=== PATIENT | female | born 1950 | race African-American/Black ===

== ENCOUNTER 2019-09-25 08:33 | Inpatient (IN) | payer MEDICARE, OTHER ==
--- NOTE | 2019-09-25 09:43 | RAD ---
PORTABLE CHEST 1 VIEW: Date: 09/25/2019 Time: 0855 hours HISTORY: Chest pain. FINDINGS: The heart size is borderline. The aorta is tortuous. The lungs are well expanded without focal areas of consolidation, pneumothoraces, or pleural effusions. IMPRESSION: No acute process. POS: [facility]
[2019-09-25] MEDS ORDERED: Dextrose 50% Abboject 50 ML SYRINGE SLOW IVP PRN (11:56)
[2019-09-25] MEDS ORDERED: Sodium Chloride 0.65% Nasal 44 ML BOT EA NARE PRN (11:56)
[2019-09-25] MEDS ORDERED: Cepastat Lozenges 1 LOZ PO PRN (11:56)
[2019-09-25] MEDS ORDERED: Zolpidem Tartrate 5 MG TAB PO PRN (11:56)
[2019-09-25] MEDS ORDERED: Loratadine 10 MG TAB PO PRN (11:56)
[2019-09-25] MEDS ORDERED: HYDROcodone/Acetaminophen 5/325 mg Tablet PO PRN (11:56)
[2019-09-25] MEDS ORDERED: Ondansetron PF 4 MG/2 ML Vial IVP PRN (11:56)
[2019-09-25] MEDS ORDERED: Ondansetron ODT 4 MG TAB PO PRN (11:56)
[2019-09-25] MEDS ORDERED: Artificial Tears 18 DROP/0.9 ML EA EYE PRN (11:56)
[2019-09-25] MEDS ORDERED: Senokot S 8.6-50 MG TAB PO PRN (11:56)
[2019-09-25] MEDS ORDERED: Bisacodyl 10 MG SUPP PR PRN (11:56)
[2019-09-25] MEDS ORDERED: Calcium Carbonate 500 MG ChewTAB PO PRN (11:56)
[2019-09-25] MEDS ORDERED: Acetaminophen 325 MG TAB PO PRN (11:56)
[2019-09-25] MEDS ORDERED: Loperamide HCl 2 MG CAP PO PRN (11:56)
[2019-09-25] MEDS ORDERED: Diabetic Tussin 200 MG/10 ML UDCUP PO PRN (11:56)
[2019-09-25] MEDS ORDERED: Dextrose 5% in Water 1,000 ML IV PRN (11:56)
[2019-09-25] MEDS ORDERED: HumaLOG 300 UNITS/3 ML VIAL SC PRN (11:56)
[2019-09-25 12:12] LABS: #Eosinphils 0.1 thou/uL (0.0-0.7); #Lymphocytes 0.9 thou/uL (1.20-3.40); #Monocytes 0.5 thou/uL (0.11-0.59); #Neutrophils 2.8 thou/uL (1.40-6.50); %Basophils 0.5 % (0.0-1.0); %Eosinophils 2.6 % (0.0-10.0); %Lymphocytes 20.2 % (21.0-51.0); %Monocytes 11.7 % (0.0-10.0); Hemoglobin 10.6 g/dL (12.0-16.0); Mean Corpuscular HGB CONC 34.2 g/dL (32.0-36.0); Mean Corpuscular Hemoglobin 31.5 pg (27.0-31.0); Mean Corpuscular Volume 92.3 fL (78.0-98.0); RBC Distribution Width 16.9 % (11.5-14.5); Red Blood Cell (RBC) Count 3.38 mill/uL (4.20-5.40); White Blood Cell (WBC) Count 4.3 thou/uL (4.8-10.8)
--- NOTE | 2019-09-25 12:23 | HP ---
PRIMARY CARE PHYSICIAN: Dr. Jose Espinal at [place]. REASON FOR ADMISSION: Admission from Nephrology Clinic for dialysis. HISTORY OF PRESENT ILLNESS: A 69-year-old female, who presented to the emergency room from Nephrology Clinic for evaluation. The patient had routine laboratory testing done yesterday upon followup visit with Nephrology and the patient's renal function deteriorated to below 10% GFR and that is why the patient was instructed to go to hospital for admission. Few months ago, the patient's GFR was above 10% and gradually, her GFR has reduced below 10%. The patient does not have any classic uremia symptoms. The patient is overall not feeling good because of worsening renal function and that is why the patient agreed to start on hemodialysis. The patient denies any NSAID abuse. The patient has underlying history of diabetes, but lately, her diabetes was diet controlled. The patient also has underlying renal insufficiency. The patient also has hypertension. The patient had a kidney biopsy done in 2016, at that time, pathology report showed global glomerulosclerosis. REVIEW OF SYSTEMS: CONSTITUTIONAL: Negative for weight loss or gain, ability to conduct usual activities. SKIN: Negative for rash, itching. EYES: Negative for double vision, pain. ENT/MOUTH: Negative for nose bleeding, neck stiffness, pain, tenderness. CARDIOVASCULAR: Negative for palpitations, dyspnea on exertion, orthopnea. RESPIRATORY: Negative for shortness of breath, wheezing, cough, hemoptysis, fever or night sweats. GASTROINTESTINAL: Negative for poor appetite, abdominal pain, heartburn, nausea , vomiting, constipation, or diarrhea. GENITOURINARY: Negative for urgency, frequency, dysuria, nocturia. MUSCULOSKELETAL: Negative for pain, swelling. NEUROLOGIC/PSYCHIATRIC: Negative for anxiety, depression. ALLERGY/IMMUNOLOGIC: Negative for skin rash, bleeding tendency. All review of systems reviewed with the patient and negative except as mentioned in HPI. PAST MEDICAL HISTORY: Hypertension, diabetes type 2, chronic kidney disease, and glomerulosclerosis. PAST SURGICAL HISTORY: Bilateral eye surgery and kidney biopsy. PAST PSYCHIATRIC HISTORY: Reviewed and negative. SOCIAL HISTORY: The patient lives at home. No history of tobacco, alcohol, or illicit drug abuse. FAMILY HISTORY: No family history of ESRD, heart disease, stroke, or cancer. ALLERGIES: METFORMIN. CURRENT HOME MEDICATIONS: The patient did not bring her home medication and she is not able to recall name of medication, so unable to review, but the patient is on hypertension medication. EMERGENCY ROOM COURSE: Reviewed. SOCIAL HISTORY: The patient is . No history of tobacco, alcohol, or illicit drug abuse. PHYSICAL EXAMINATION: VITAL SIGNS: Currently, blood pressure 170/74, pulse 51, respiratory rate 15, temperature 98.6, saturations 100% on room air. Weight 63.5 kg. GENERAL: The patient is currently alert and awake. No acute distress. HEENT: Head; normocephalic, atraumatic. NECK: Supple. No JVD. No meningeal signs of irritation. LUNGS: Clear to auscultation without any rhonchi or rales. CARDIAC: S1 and S2, regular. No murmur. No gallop. No rub. ABDOMEN: Soft, bowel sounds present, nontender, nondistended. No organomegaly. No mass. EXTREMITIES: No edema. Good distal pulsation. NEUROLOGIC: Nonfocal examination. SIGNIFICANT LABORATORY DATA: We have ordered BMP, CBC, CK, CMP, troponin, and chest x-ray result is pending by the time of dictation. We will review all test results. ASSESSMENT: 1. Acute on chronic kidney failure and now end-stage renal disease, requiring hemodialysis. 2. Diabetes type 2. 3. Hypertension. 4. Global glomerulosclerosis. 5. Anemia of renal disease. 6. Secondary hyperparathyroidism of renal origin. 7. Dyslipidemia. 8. Hypercalcemia PLAN: 1. The patient's home medications will be reconciled and will restart those medications. Nephrology will be consulted. The patient will need a General Surgery consultation for hemodialysis access and the patient will have regular dialysis every day. Social Work will be consulted for outpatient hemodialysis arrangements. We will also check PTH, phosphorus, and anemia panel. We will also obtain chest x-ray. 2. Deep venous thrombosis prophylaxis. Heparin 5000 units subcu twice daily. 3. Gastrointestinal prophylaxis, Protonix 40 mg p.o. daily. 4. Diabetes. Hyperglycemia protocol order will be initiated. DISPOSITION PLAN: Based on clinical course. We are expecting the patient's stay in hospital more than 2 midnights. Plan of care discussed with the patient in detail. Job ID: [id number] MTDD
[2019-09-25 12:31] LABS: ALT (SGPT) 13 U/L (8-55); AST (SGOT) 18 U/L (5-34); Albumin 3.9 g/dL (3.4-4.8); Alkaline Phosphatase 77 U/L (40-110); Anion Gap 14 mmol/L (10-20); BUN (Urea Nitrogen) 96 mg/dL (9.8-20.1); Bilirubin, Total 0.3 mg/dL (0.2-1.2); CK (CPK) 336 U/L (29-168); Calc. Creatinine Clearance 0 mL/min (70-130); Carbon Dioxide 23 mmol/L (23-31); Chloride 106 mmol/L (98-107); Estimated GFR-MDRD 9; Globulin 2.9 g/dL (2.4-3.5); Glucose 116 mg/dL (80-115); Potassium 3.8 mmol/L (3.5-5.1); Protein, Total 6.8 g/dL (6.0-8.3); Sodium 139 mmol/L (136-145)
[2019-09-25 12:33] LABS: Calcium 12.4 mg/dL (7.8-10.44)
[2019-09-25 12:35] LABS: Troponin I 0.038 ng/mL (< 0.028)
[2019-09-25 12:35] LABS: Iron 25 ug/dL (50-170); Iron Binding Capacity, Total 196 mcg/dL (265-497); Phosphorus 4.7 mg/dL (2.3-4.7)
[2019-09-25 12:37] LABS: MDiff Complete? YES; Mean Platelet Volume 9.2 fL (7.4-10.4); Platelet Count 115 thou/uL (130-400); Platelet Morphology Comment Appears Decreased; Polychromasia SLIGHT = 2-3 cells (100X) (0-2/hpf)
[2019-09-25] MEDS ORDERED: Aspirin Chewable 81 MG TAB ONE (13:07)
[2019-09-25 14:59] VITALS: BMI 24.3
[2019-09-25] MEDS ORDERED: CEFAZOLIN 2 GM in Premix Bag 1 BAG IVPB SCH (15:45)
--- NOTE | 2019-09-25 16:08 | CON ---
DATE OF CONSULTATION: REASON FOR CONSULTATION: End-stage kidney disease, on maintenance hemodialysis. HISTORY OF PRESENTING ILLNESS: This is a very pleasant 69-year-old female [facility], seen yesterday for worsening renal failure, and severe hypercalcemia. The patient denies any nausea, vomiting, or chest pain. Her renal function is declining. She has diabetes mellitus. The patient has poor appetite. PAST MEDICAL HISTORY: Hypertension, diabetes, chronic kidney disease, hypertensive nephrosclerosis, eye surgery, kidney biopsy. SOCIAL HISTORY: No alcohol or drug use. FAMILY HISTORY: Negative for ESRD. ALLERGIES: REVIEWED. MEDICATIONS: Home medications list reviewed. Hospital medications list reviewed. REVIEW OF SYSTEMS: 15-point review of systems was performed, was negative except for positives noted above. HEENT: Eyes intact, no diplopia. Ears: No hearing loss or earache. Nose: No discharge or bleeding. Chest: No cough or phlegm. Abdomen: No nausea or vomiting. Genitourinary: No hematuria. No Yi catheter. Musculoskeletal: No low back pain. No joint swelling or pain. Neurological: No syncope. No seizures. Skin: No complaints of rash or itching. Psychiatric: No depression. Constitutional: No weight loss or loss of appetite. PHYSICAL EXAMINATION: General: The patient is awake and alert. Vital Signs: Afebrile, pulse 59, breathing at 16, blood pressure 186/87. HEENT: Head normocephalic and atraumatic. Eyes intact, no ulcers. Nose intact, no ulcers. Ears intact, no ulcers. Neck: Supple. No JVD. Chest: Symmetrical and clear. Cardiovascular: Shows S1 and S2, no rub, no murmur. Gastrointestinal: Abdomen is soft, bowel sounds positive. Extremities: Show no edema or ulcers. Skin: Shows no rash or petechiae. Musculoskeletal: Shows no joint swelling or stiffness. Genitourinary: Shows no Yi or CVA tenderness. Neurologic: Motor intact. Cranial nerves intact. LABORATORY DATA: Reviewed. ASSESSMENT AND PLAN: 1. Stage 6 chronic kidney disease. Plan dialysis. 2. Hypertension, stable. 3. Anemia, stable. General Surgery will be consulted. 4. Hypercalcemia. We will use a low calcium diet. Job ID: [id number]
[2019-09-25 16:10] LABS: Troponin I 0.025 ng/mL (< 0.028)
[2019-09-25] MEDS: hydrALAZINE 20 MG/ML VIAL SLOW IVP PRN ×2 (16:19→20:50)
[2019-09-25 16:39] LABS: Bacteria/HPF None Seen HPF (None Seen); Bilirubin Negative (Negative); Blood, Urine Trace (Negative); Clarity Clear (Clear); Glucose, Urine (Dipstick) Normal (Negative); Leukocyte Negative Leu/uL (Negative); Nitrite Negative (Negative); Protein, Urine (Dipstick) 100 mg/dL (Neg-Trace); RBC/HPF 0-3 HPF (0-3); Squamous Epithelial None Seen HPF (0-3); Urobilinogen Normal mg/dL (Less than 2); WBC/HPF 0-3 HPF (0-3)
[2019-09-25] MEDS ORDERED: NIFEdipine XL 60 MG TAB PO SCH (18:15)
[2019-09-25] MEDS: Carvedilol 25 MG TAB PO SCH (20:51)
[2019-09-25] MEDS: Heparin 5,000 UNITS/ML VIAL SC SCH (21:02)
--- NOTE | 2019-09-26 01:47 | CON ---
DATE OF CONSULTATION: HISTORY OF PRESENT ILLNESS: Katelynn Lara is a 69-year-old female, admitted to hospice for end-stage renal disease. She has progressive renal failure and now needs dialysis access. She is seen by Dr. Stafford, admitted by the hospitalist. She lives in [place]. ALLERGIES: METFORMIN. SOCIAL HISTORY: Tobacco, none. Alcohol, none. MEDICATIONS: 1. Simvastatin. 2. Nifedipine. 3. Cholecalciferol. 4. Multivitamins. 5. Furosemide. 6. Sodium bicarbonate. 7. Hydralazine. 8. Losartan. 9. Multivitamins. 10. . 11. Calcium carbonate. 12. Coreg. 13. Aspirin. 14. Timolol eye drops. PAST SURGICAL HISTORY: Eye surgery and kidney biopsy. PAST MEDICAL HISTORY: Hypertension, diabetes mellitus type 2, chronic kidney disease, glomerulosclerosis, and endoscopies upper and lower in the past. REVIEW OF SYSTEMS: Ten-point noncontributory, otherwise. Cardiopulmonary, no history of cardiac events or symptomatology. No symptoms of coronary ischemia. PHYSICAL EXAMINATION: VITAL SIGNS: Height 5 feet 5 inches, 146 pounds, and 24 BMI. Temperature 97.7, heart rate 59, blood pressure 172/77, and respiratory rate 18. HEAD, EARS, EYES, NOSE, AND THROAT: Unremarkable. LUNGS: Clear to auscultation. CARDIAC: murmur or gallop. ABDOMEN: Soft and nontender. No masses. EXTREMITIES: Palpable radial pulses. No visible demonstrable vein out of the right hand. ASSESSMENT AND PLAN: 1. Right-handed female in need of dialysis access. We will plan placing a hemodialysis catheter in central line in the OR under IV sedation and local tomorrow. We will plan placement of primary fistula or prosthetic graft next week under regional anesthesia and sedation. She is not interested in peritoneal dialysis. 2. Hypertension. Job ID: [id number]
--- NOTE | 2019-09-26 07:44 | ULT ---
ULTRASOUND VESSEL MAPPING DIALYSIS ACCESS: HISTORY: End stage renal disease. COMPARISON: None. FINDINGS: Real-time, garcia scale, color Doppler, and spectral analysis right upper extremity and left upper extr emity arteriovenous system was performed. The right and left and internal jugular veins as well as subclavian veins are patent. RIGHT SIDE: CEPHALIC VEIN Proximal Arm: 0.14 cm Mid Arm: 0.13 cm Distal Arm: 0.14 cm Antecubital Fossa: 0.17 cm Proximal Forearm: 0.13 cm Mid Forearm: 0.12 cm Distal Forearm: 0.12 cm BASILIC VEIN Proximal Arm: 0.32 cm Mid Arm: 0.25 cm Distal Arm: 0.19 cm Antecubital Fossa: 0.21 cm Proximal Forearm: 0.12 cm Mid Forearm: 0.15 cm Distal Forearm: 0.11 cm BRACHIAL ARTERY: 0.48 cm RADIAL ARTERY: 0.23 cm ULNAR ARTERY: 0.18 cm LEFT SIDE: CEPHALIC VEIN Proximal Arm: 0.16 cm Mid Arm: 0.15 cm Distal Arm: 0.14 cm Antecubital Fossa: 0.15 cm Proximal Forearm: 0.12 cm Mid Forearm: 0.14 cm Distal Forearm: 0.12 cm BASILIC VEIN Proximal Arm: 0.22 cm Mid Arm: 0.22 cm Distal Arm: 0.19 cm Antecubital Fossa: 0.20 cm Proximal Forearm: 0.14 cm Mid Forearm: 0.11 cm Distal Forearm: 0.12 cm BRACHIAL ARTERY: 0.56 cm RADIAL ARTERY: 0.24 cm ULNAR ARTERY: 0.19 cm IMPRESSION: 1. Vascular size as above. 2. Patent internal jugular veins and subclavian veins. POS: HOME
[2019-09-26] MEDS: Heparin 5,000 UNITS/ML VIAL SC SCH ×2 (08:50→21:01)
[2019-09-26] MEDS: Carvedilol 25 MG TAB PO SCH ×2 (08:59→21:01)
[2019-09-26] MEDS: NIFEdipine XL 60 MG TAB PO SCH (08:59)
[2019-09-26] MEDS: Aspirin Chewable 81 MG TAB PO SCH (09:00)
--- NOTE | 2019-09-26 09:00 | PRG ---
DATE OF SERVICE: 09/26/2019 SUBJECTIVE: A 69-year-old female, being seen for end-stage renal disease. The patient denied nausea, vomiting, or chest pain. OBJECTIVE: General: The patient is awake and alert. Vital Signs: Afebrile, pulse 75, breathing at 16, blood pressure 149/60. HEENT: Head normocephalic and atraumatic. Eyes intact, no ulcers. Nose intact, no ulcers. Ears intact, no ulcers. Neck: Supple. No JVD. Chest: Symmetrical and clear. Cardiovascular: Shows S1 and S2, no rub, no murmur. Gastrointestinal: Abdomen is soft, bowel sounds positive. Extremities: Show no edema or ulcers. Skin: Shows no rash or petechiae. Musculoskeletal: Shows no joint swelling or stiffness. Genitourinary: Shows no Yi or CVA tenderness. Neurologic: Motor intact. Cranial nerves intact. LABORATORY DATA: Reviewed. ASSESSMENT AND PLAN: 1. Stage 6 chronic kidney disease. Plan dialysis. 2. Hypertension, stable. 3. Anemia, stable. 4. Medication based on GFR appropriate. The patient is awaiting access. Job ID: [id number]
--- NOTE | 2019-09-26 10:31 | PDOC.HOSPP ---
- Subjective Encounter Date: 09/26/19 Encounter Time: 10:00 Subjective: Patient seen and examined. No new complaints. No overnight events - Objective Vital Signs & Weight: Vital Signs (12 hours) Temp Pulse Resp BP Pulse Ox 09/26/19 08:59 80 09/26/19 08:00 98.6 F 80 18 145/70 H 98 09/26/19 04:10 98.9 F 81 16 149/66 H 98 09/26/19 00:10 98.2 F 71 16 150/71 H 99 Weight Weight 146 lb 2.664 oz I&O: 09/25/19 09/26/19 09/27/19 06:59 06:59 06:59 Intake Total 300 Balance 300 Result Diagrams: 09/25/19 11:55 09/25/19 11:55 Additional Labs: Accuchecks 09/26/19 09/25/19 09/25/19 06:03 20:20 15:16 POC Glucose 124 H 164 H 121 H Hospitalist ROS - Review of Systems Constitutional: denies: fever, chills, sweats, weakness, malaise, other ENT: denies: ear pain, ear discharge, nose pain, nose discharge, nose congestion , mouth pain, mouth swelling, throat pain, throat swelling, other Respiratory: denies: cough, dry, shortness of breath, hemoptysis, SOB with excertion, pleuritic pain, sputum, wheezing, other Cardiovascular: denies: chest pain, palpitations, orthopnea, paroxysmal noc. dyspnea, edema, light headedness, other Gastrointestinal: denies: nausea, vomiting, abdominal pain, diarrhea, constipation, melena, hematochezia, other Genitourinary: denies: dysuria, frequency, incontinence, hematuria, retention, other Musculoskeletal: denies: neck pain, shoulder pain, arm pain, back pain, hand pain, leg pain, foot pain, other Skin: denies: rash, lesions, sandra, bruising, other - Medication Medications: Active Medications Generic Name Dose Route Start Last Admin Trade Name Freq PRN Reason Stop Dose Admin Aspirin 81 mg 09/26/19 09:00 09/26/19 09:00 Aspirin Chewable PO Not Given DAILY CESAR Carvedilol 25 mg 09/25/19 21:00 09/26/19 08:59 Coreg PO 25 mg BID CESAR Administration Heparin Sodium (Porcine) 5,000 units 09/25/19 21:00 09/26/19 08:50 Heparin SC Not Given BID CESAR Hydralazine HCl 10 mg 09/25/19 11:56 09/25/19 20:50 Apresoline SLOW IVP 10 mg Q3H PRN Administration SBP GREATER THAN 160 Nifedipine 60 mg 09/26/19 09:00 09/26/19 08:59 Procardia Xl PO 60 mg DAILY CESAR Administration Pantoprazole Sodium 40 mg 09/26/19 09:00 09/26/19 08:59 Protonix PO 40 mg DAILY CESAR Administration Pneumococcal 13-Valent Conj Vacc 0.5 ml 09/26/19 15:45 09/25/19 18:35 Prevnar IM 09/26/19 15:46 Not Given .ONCE ONE - Exam General Appearance: NAD, awake alert Eye: PERRL, anicteric sclera ENT: normocephalic atraumatic, no oropharyngeal lesions Neck: supple, symmetric, no JVD, no thyromegaly Heart: RRR, no murmur, no gallops, no rubs Respiratory: CTAB, no wheezes, no rales, no ronchi Gastrointestinal: soft, non-tender, non-distended, normal bowel sounds Extremities: no cyanosis, no clubbing, no edema Skin: normal turgor, no lesions Neurological: no focal deficits Musculoskeletal: normal tone, normal strength Psychiatric: normal affect, normal behavior Hosp A/P (1) ESRD needing dialysis Code(s): N18.6 - END STAGE RENAL DISEASE; Z99.2 - DEPENDENCE ON RENAL DIALYSIS Status: Acute (2) Hypercalcemia Code(s): E83.52 - HYPERCALCEMIA Status: Acute (3) Hypertension Code(s): I10 - ESSENTIAL (PRIMARY) HYPERTENSION Status: Chronic Qualifiers: Hypertension type: essential hypertension Qualified Code(s): I10 - Essential (primary) hypertension (4) Anemia of renal disease Code(s): N18.9 - CHRONIC KIDNEY DISEASE, UNSPECIFIED; D63.1 - ANEMIA IN CHRONIC KIDNEY DISEASE Status: Chronic (5) Diabetes type 2, controlled Code(s): E11.9 - TYPE 2 DIABETES MELLITUS WITHOUT COMPLICATIONS Status: Chronic (6) Dyslipidemia Code(s): E78.5 - HYPERLIPIDEMIA, UNSPECIFIED Status: Chronic (7) Glaucoma Code(s): H40.9 - UNSPECIFIED GLAUCOMA Status: Chronic - Plan old records reviewed/req, social contact worker, DVT proph w/heparin 09/26/19 hypercalcemia may be due to her medication but given pancyctopenia, will rule out multiple myeloma, will send SPAP tomorrow repeat labs tomorrow medication reviewed symptomatic treatment today tunneled HD catheter placement HD as per nephrology home medication reconciled.
[2019-09-26] MEDS: Brimonidine Tartrate 0.2% Ophth Soln 5 ml Bottle EA EYE SCH ×3 (10:39→21:09)
[2019-09-26] MEDS: Dorzolamide HCl 2% Ophth Soln 10 ml Bottle EA EYE SCH ×3 (10:40→21:06)
[2019-09-26] MEDS: hydrALAZINE 25 MG TAB PO SCH ×3 (10:46→21:01)
[2019-09-26] MEDS: Sodium Bicarbonate Tab 325 MG TAB PO SCH ×2 (10:47→21:01)
[2019-09-26] MEDS: Vit A,C & E/Lutein/Minerals Tablet PO SCH ×2 (10:49→21:01)
[2019-09-26] MEDS: Timolol 0.5% Ophth Soln 5 ml Bottle EA EYE SCH ×2 (10:49→21:09)
[2019-09-26] MEDS: Folic Acid/Vit B Comp W-C PO SCH (10:56)
[2019-09-26 11:17] LABS: SARS-CoV-2 MS2 Positive; SARS-CoV-2 N Gene Negative; SARS-CoV-2 S Gene Negative; SARS-CoV-2 orf1ab Negative
[2019-09-26] MEDS ORDERED: Lidocaine 1% PF 5 ML VIAL ONE (11:51)
[2019-09-26] MEDS ORDERED: PROPOFOL 200 MG/20 ML VIAL ONE (11:51)
[2019-09-26] MEDS: Losartan 25 MG TAB PO SCH ×2 (12:58→21:01)
[2019-09-26 14:26] LABS: HBSAB Concentration 2.33 mIU/mL; HBSAg Index 0.17 S/CO (0-0.99); Hep B Core Total Ab Non-Reactive (NonReactive); Hep B Core Total Index 0.07 S/CO (0-0.79); Hep B Surf AB Non-Reactive (NonReactive); Hep B Surf Ag Non-Reactive S/CO (NonReactive); Hep C IgG Ab Non-Reactive (NonReactive); Hep C Index 0.05 S/CO (0-0.79)
[2019-09-26] MEDS ORDERED: Prevnar 13-Val Conj/PF 0.5 ML SYRINGE IM ONE (15:45)
[2019-09-26] MEDS ORDERED: Lidocaine 1% w/Epinephrine 1:100K 20 ML VIAL ONE (16:44)
[2019-09-26] MEDS ORDERED: Bupivacaine PF 0.5% 30 ML VIAL ONE (16:44)
[2019-09-26] MEDS ORDERED: Heparin 10,000 UNITS/1 ML VIAL ONE (16:44)
[2019-09-26] MEDS ORDERED: Sodium Chloride 0.9% 30 ML ONE (16:44)
[2019-09-26] MEDS ORDERED: Midazolam HCl 2 mg/2 ml Vial ONE (16:52)
[2019-09-26] MEDS ORDERED: Fentanyl 100 MCG/2 ML VIAL ONE (16:52)
[2019-09-26] MEDS ORDERED: PROPOFOL 20 ML ONE (17:00)
--- NOTE | 2019-09-26 19:12 | RAD ---
FRONTAL RADIOGRAPH CHEST: 09/26/19 COMPARISON: 09/25/19. HISTORY: Evaluate chest following central line placement. FINDINGS: There is a new right sided dialysis catheter with distal tip overlying the proximal right atrium. The re is a new left sided vascular catheter with distal tip also overlying the proximal right atrium. No pneumothorax, pleural fluid, lobar consolidation, or alveolar edema. IMPRESSION: Vascular catheters as above. No pneumothorax seen. POS: [facility]
[2019-09-26] MEDS: Simvastatin 5 MG TAB PO SCH (21:00)
--- NOTE | 2019-09-26 22:46 | ULT ---
THYROID ULTRASOUND: Date: 09/26/2019 HISTORY: Thyromegaly. TECHNIQUE: Multiplanar Gutierrez scale sonographic imaging of the thyroid gland obtained. FINDINGS: The right lobe of the thyroid gland is enlarged, measuring 6.1 x 3.5 x 4.9 cm. The isthmus is enlarge d, measuring 1.3 cm in AP dimension. The left lobe is enlarged, measuring 5.1 x 3.0 cm x 3.5 cm. There are innumerable complex cystic nodules seen throughout both the right and left lobe of the thyr oid gland. No dominant solid thyroid nodule is noted on either side. There is a complex cystic nodule within the posterior aspect of the right lobe measuring approximatel y 1.9 x 1.2 cm. Within the superior aspect of the right lobe, there is a 2.8 x 1.7 x 1.6 cm spongifor m nodule noted. The largest nodule on the left is a 1.0 cm cystic nodule with mild complexity. IMPRESSION: Enlarged thyroid gland with numerous cystic nodules noted bilaterally. Lesions include a TI-RADS Carmen gory 3 nodule within the right lobe which measures 1.9 cm. Given size, follow-up ultrasound advised i n 1 year. POS: [facility]
--- NOTE | 2019-09-27 00:41 | OP ---
DATE OF PROCEDURE: 09/26/2019 PREOPERATIVE DIAGNOSES: 1. End-stage renal disease. 2. Poor IV access. 3. Noted during this procedure, markedly enlarged thyroid, bilobar. POSTOPERATIVE DIAGNOSES: 1. End-stage renal disease. 2. Poor IV access. 3. Noted during this procedure, markedly enlarged thyroid, bilobar. PROCEDURE PERFORMED: Right internal jugular cuffed-tunneled hemodialysis catheter, left internal jugular central line. Fluoroscopy used. Ultrasound used. ANESTHESIA: Intravenous sedation, local 0.5% Marcaine with 30 mL mixed with 1% Xylocaine with epinephrine 30 mL. DESCRIPTION OF PROCEDURE: The patient was taken to the operating room, where under intravenous sedation, neck and chest prepared with ChloraPrep and draped in routine fashion. Noted was bilobar markedly enlarged thyroid. Local anesthetic was infiltrated in the skin and subcutaneous tissue about the operative sites. Right and left internal jugular veins using ultrasound guidance cannulated with trocar catheter. J-wire was threaded. Trocar catheter was removed. Skin site was enlarged sharply on both sides, and Seldinger technique used to place a triple-lumen catheter in the left IJ, secured with 3-0 nylon suture and sterile dressing. Each port aspirated of blood and flushed with the saline solution. On the right side, a stab incision was made over the right chest and using a tunneling device, pre-curved [employer] cuffed-tunneled hemodialysis catheter tunneled between the 2 incisions, placed a the skin exit site and the catheter secured with 2 interrupted sutures of 3-0 nylon. Sterile dressing applied. A small and medium size dilators placed over the J-wire into the internal jugular vein, removed. Dilator and Peel-Away sheath the J-wire into the superior vena cava. Dilator and J-wire were removed. Catheter placed with Peel-Away sheath. Peel-Away sheath removed. Platysma was approximated with 4-0 Monocryl, skin with subdermal 4-0 Monocryl, and [place] glue applied. All ports of the catheter were aspirated of blood and flushed with saline solution. Hemodialysis catheter flushed with 1000 units of heparin per mL indicating volume on the port. The patient tolerated the procedure well. Job ID: [id number]
[2019-09-27 05:53] LABS: #Eosinphils 0.1 thou/uL (0.0-0.7); #Lymphocytes 0.7 thou/uL (1.20-3.40); #Monocytes 0.5 thou/uL (0.11-0.59); #Neutrophils 4.7 thou/uL (1.40-6.50); %Basophils 0.3 % (0.0-1.0); %Eosinophils 2.1 % (0.0-10.0); %Lymphocytes 11.2 % (21.0-51.0); %Monocytes 8.3 % (0.0-10.0); %Neutrophils 78.1 % (42.0-75.0); Hemoglobin 9.3 g/dL (12.0-16.0); Mean Corpuscular Hemoglobin 30.9 pg (27.0-31.0); Mean Corpuscular Volume 93.6 fL (78.0-98.0); Platelet Count 115 thou/uL (130-400); RBC Distribution Width 16.5 % (11.5-14.5)
[2019-09-27 06:17] LABS: Albumin 3.5 g/dL (3.4-4.8); Anion Gap 15 mmol/L (10-20); BUN (Urea Nitrogen) 87 mg/dL (9.8-20.1); BUN/Creatinine Ratio 15.85; Calc. Creatinine Clearance 10 mL/min (70-130); Calcium 11.4 mg/dL (7.8-10.44); Carbon Dioxide 23 mmol/L (23-31); Chloride 109 mmol/L (98-107); Estimated GFR-MDRD 9; Glucose 103 mg/dL (80-115); Phosphorus 4.2 mg/dL (2.3-4.7); Potassium 3.6 mmol/L (3.5-5.1); Sodium 143 mmol/L (136-145)
[2019-09-27] MEDS: hydrALAZINE 25 MG TAB PO SCH ×3 (08:42→20:22)
[2019-09-27] MEDS: Sodium Bicarbonate Tab 325 MG TAB PO SCH ×2 (08:42→20:23)
[2019-09-27] MEDS: Aspirin Chewable 81 MG TAB PO SCH (08:42)
[2019-09-27] MEDS: Losartan 25 MG TAB PO SCH ×2 (08:43→20:23)
[2019-09-27] MEDS: Carvedilol 25 MG TAB PO SCH ×2 (08:43→20:23)
[2019-09-27] MEDS: NIFEdipine XL 60 MG TAB PO SCH (08:44)
[2019-09-27] MEDS: Heparin 5,000 UNITS/ML VIAL SC SCH ×2 (08:45→20:23)
[2019-09-27] MEDS: Dorzolamide HCl 2% Ophth Soln 10 ml Bottle EA EYE SCH ×3 (08:55→20:21)
[2019-09-27] MEDS: Brimonidine Tartrate 0.2% Ophth Soln 5 ml Bottle EA EYE SCH ×3 (08:55→20:22)
[2019-09-27] MEDS: Timolol 0.5% Ophth Soln 5 ml Bottle EA EYE SCH ×2 (08:55→20:21)
[2019-09-27] MEDS: Vit A,C & E/Lutein/Minerals Tablet PO SCH ×2 (08:56→20:22)
[2019-09-27] MEDS: Folic Acid/Vit B Comp W-C PO SCH (08:57)
--- NOTE | 2019-09-27 09:41 | PDOC.HOSPP ---
- Subjective Encounter Date: 09/27/19 Encounter Time: 09:35 Subjective: f/u for ESRD initiating HD today after placement of tunneled HD catheter. No new issues noted. - Objective Vital Signs & Weight: Vital Signs (12 hours) Temp Pulse Resp BP BP Pulse Ox 09/27/19 08:55 77 09/27/19 08:44 77 09/27/19 08:42 77 159/85 H 09/27/19 04:00 98.1 F 77 16 136/76 98 09/27/19 00:00 98 F 72 16 143/74 H 99 Weight Admit Weight 146 lb 2.664 oz Weight 146 lb 2.664 oz I&O: 09/26/19 09/27/19 09/28/19 06:59 06:59 06:59 Intake Total 300 960 Balance 300 960 Result Diagrams: 09/28/19 05:55 09/28/19 05:55 Additional Labs: Accuchecks 09/26/19 09/26/19 21:00 11:20 POC Glucose 191 H 133 H Laboratory Tests 06/05/19 07/17/19 08/14/19 10:50 11:42 10:50 WBC Hgb Plt Count Creatinine Calcium 9.1 Iron 45 L 35 L TIBC % Saturation B-Natriuretic Peptide COVID-19 PCR 09/25/19 09/25/19 09/25/19 11:55 11:55 11:55 WBC 4.3 L Hgb 10.6 L Plt Count 115 L Creatinine 5.96 H Calcium 12.4 H* Iron TIBC % Saturation B-Natriuretic Peptide 104.1 H COVID-19 PCR 09/25/19 09/25/19 12:01 15:40 WBC Hgb Plt Count Creatinine Calcium Iron 25 L TIBC 196 L % Saturation 13 L B-Natriuretic Peptide COVID-19 PCR Not Detected Radiology Reviewed by me: Yes (PCXR - CVC, HD catheters in place, no PTX) Hospitalist ROS - Medication Medications: Active Medications Generic Name Dose Route Start Last Admin Trade Name Freq PRN Reason Stop Dose Admin Aspirin 81 mg 09/26/19 09:00 09/27/19 08:42 Aspirin Chewable PO 81 mg DAILY CESAR Administration Brimonidine Tartrate 1 drop 09/26/19 09:00 09/27/19 08:55 Alphagan 0.2% Ophth Soln EA EYE 1 drop TID CESAR Administration Carvedilol 25 mg 09/25/19 21:00 09/27/19 08:43 Coreg PO 25 mg BID CESAR Administration Dorzolamide HCl 1 drop 09/26/19 09:00 09/27/19 08:55 Trusopt 2% Ophth Soln EA EYE 1 drop TID CESAR Administration Heparin Sodium (Porcine) 5,000 units 09/25/19 21:00 09/27/19 08:45 Heparin SC 5,000 units BID CESAR Administration Hydralazine HCl 10 mg 09/25/19 11:56 09/25/19 20:50 Apresoline SLOW IVP 10 mg Q3H PRN Administration SBP GREATER THAN 160 Hydralazine HCl 100 mg 09/26/19 09:00 09/27/19 08:42 Apresoline PO 100 mg TID CESAR Administration Losartan Potassium 50 mg 09/26/19 09:00 09/27/19 08:43 Cozaar PO 50 mg BID CESAR Administration Multivitamins/Minerals 1 tab 09/26/19 09:00 09/27/19 08:56 Ocuvite With Lutein PO 1 tab BID CESAR Administration Nifedipine 60 mg 09/26/19 09:00 09/27/19 08:44 Procardia Xl PO 60 mg DAILY CESAR Administration Pantoprazole Sodium 40 mg 09/26/19 09:00 09/27/19 08:43 Protonix PO 40 mg DAILY CESAR Administration Simvastatin 10 mg 09/26/19 21:00 09/26/19 21:00 Zocor PO 10 mg HS CESAR Administration Sodium Bicarbonate 650 mg 09/26/19 09:00 09/27/19 08:42 Bicarbonate, Sodium PO 650 mg BID CESAR Administration Timolol Maleate 1 drop 09/26/19 09:00 09/27/19 08:55 Timoptic 0.5% Ophth Soln EA EYE 1 drop BID CESAR Administration Vitamin B Complex/Vit C/Folic Acid 1 tab 09/26/19 09:00 09/27/19 08:57 Nephro-Riki Tablet PO 1 tab DAILY CESAR Administration - Exam General Appearance: NAD, awake alert Eye: PERRL, anicteric sclera ENT: normocephalic atraumatic, no oropharyngeal lesions Neck: supple, symmetric, no JVD Heart: RRR, no murmur, no gallops, no rubs, normal peripheral pulses Respiratory: CTAB, no wheezes, no rales, no ronchi, normal chest expansion Gastrointestinal: soft, non-tender, non-distended, normal bowel sounds, no palpable masses Extremities: no cyanosis, no clubbing, no edema Skin: normal turgor, no lesions Neurological: cranial nerve grossly intact, no new deficit Musculoskeletal: normal tone, normal strength, no muscle wasting Psychiatric: normal affect, A&O x 3 Hosp A/P (1) ESRD needing dialysis Code(s): N18.6 - END STAGE RENAL DISEASE; Z99.2 - DEPENDENCE ON RENAL DIALYSIS Status: Acute Plan: HD initiating today, continue HD per Renal service recommendations, outpt coordination for HD (2) Hypercalcemia Code(s): E83.52 - HYPERCALCEMIA Status: Acute Plan: Improved, continue to monitor trend with HD, avoid all Ca++ supplementation (3) Anemia of renal disease Code(s): N18.9 - CHRONIC KIDNEY DISEASE, UNSPECIFIED; D63.1 - ANEMIA IN CHRONIC KIDNEY DISEASE Status: Chronic Plan: Likely due to CKD and component of iron-deficiency, FeSO4 supplementation (4) Diabetes type 2, controlled Code(s): E11.9 - TYPE 2 DIABETES MELLITUS WITHOUT COMPLICATIONS Status: Chronic Plan: ISS, Diet managed, serial accuchecks (5) Hypertension Code(s): I10 - ESSENTIAL (PRIMARY) HYPERTENSION Status: Chronic Qualifiers: Hypertension type: essential hypertension Qualified Code(s): I10 - Essential (primary) hypertension Plan: Continue current BP regimen, stable trend, monitor as HD continues - 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
--- NOTE | 2019-09-27 11:06 | PRG ---
DATE OF SERVICE: 09/27/2019 SUBJECTIVE: A 69-year-old female, being seen for end-stage renal disease. The patient denied nausea, vomiting, or chest pain. OBJECTIVE: General: The patient is awake and alert. Vital Signs: Afebrile, pulse 77, breathing 16, and blood pressure 137/76. HEENT: Head, normocephalic and atraumatic. Eyes intact, no ulcers. Nose intact, no ulcers. Ears intact, no ulcers. Neck: Supple. No JVD. Chest: Symmetrical and clear. Cardiovascular: Shows S1 and S2, no rub, no murmur. Gastrointestinal: Abdomen is soft, bowel sounds positive. Extremities: Show no edema or ulcers. Skin: Shows no rash or petechiae. Musculoskeletal: Shows no joint swelling or stiffness. Genitourinary: Shows no Yi or CVA tenderness. Neurologic: Motor intact. Cranial nerves intact. LABORATORY DATA: Reviewed. ASSESSMENT AND PLAN: 1. Stage 6 chronic kidney disease. Plan dialysis. 2. Hypertension, stable. 3. Anemia, stable. 4. Medication based on GFR appropriate. Job ID: [id number]
[2019-09-27] MEDS ORDERED: Heparin 10,000 UNITS/ 10 ML VIAL ONE (13:53)
--- NOTE | 2019-09-27 14:51 | EKG ---
Test Reason : Blood Pressure : / mmHG Vent. Rate : 051 BPM Atrial Rate : 051 BPM P-R Int : 174 ms QRS Dur : 080 ms QT Int : 418 ms P-R-T Axes : 061 017 051 degrees QTc Int : 385 ms Sinus bradycardia Possible Left atrial enlargement Low voltage QRS Septal infarct , age undetermined Abnormal ECG Confirmed by SENAIT BADILLO ([id number]), book editor YANE BARCLAY ([id number]) on 09/27/2019 2:50:53 PM Referred By: ABY Confirmed By:SENAIT BADILLO
[2019-09-27] MEDS: Ferrous Sulfate 325 MG TAB PO SCH (18:11)
[2019-09-27] MEDS: Simvastatin 5 MG TAB PO SCH (20:23)
[2019-09-28 06:19] LABS: Anion Gap 14 mmol/L (10-20); BUN (Urea Nitrogen) 67 mg/dL (9.8-20.1); Calc. Creatinine Clearance 12 mL/min (70-130); Carbon Dioxide 24 mmol/L (23-31); Chloride 105 mmol/L (98-107); Estimated GFR-MDRD 11; Glucose 121 mg/dL (80-115); Potassium 3.7 mmol/L (3.5-5.1); Sodium 139 mmol/L (136-145)
[2019-09-28 06:38] LABS: Hemoglobin 9.8 g/dL (12.0-16.0); Mean Corpuscular Hemoglobin 30.9 pg (27.0-31.0); Mean Corpuscular Volume 93.5 fL (78.0-98.0); Mean Platelet Volume 9.2 fL (7.4-10.4); Platelet Count 115 thou/uL (130-400); RBC Distribution Width 16.5 % (11.5-14.5); Red Blood Cell (RBC) Count 3.17 mill/uL (4.20-5.40); White Blood Cell (WBC) Count 4.7 thou/uL (4.8-10.8)
[2019-09-28 08:10] LABS: Band 1 % (5-11); Eosinophils 3 % (0-10); Lymphocytes 27 % (21-51); MDiff Complete? YES; Monocytes 12 % (0-10); Neutrophil 57 % (42-75); Platelet Morphology Comment Appears Decreased
[2019-09-28] MEDS: Ferrous Sulfate 325 MG TAB PO SCH ×2 (08:35→16:04)
[2019-09-28] MEDS: Heparin 5,000 UNITS/ML VIAL SC SCH ×2 (08:52→21:05)
[2019-09-28] MEDS: Sodium Bicarbonate Tab 325 MG TAB PO SCH ×2 (08:53→21:01)
[2019-09-28] MEDS: NIFEdipine XL 60 MG TAB PO SCH (08:53)
[2019-09-28] MEDS: Losartan 25 MG TAB PO SCH ×2 (08:54→21:02)
[2019-09-28] MEDS: hydrALAZINE 25 MG TAB PO SCH ×3 (08:54→21:02)
[2019-09-28] MEDS: Vit A,C & E/Lutein/Minerals Tablet PO SCH ×2 (08:55→21:02)
[2019-09-28] MEDS: Aspirin Chewable 81 MG TAB PO SCH (08:55)
[2019-09-28] MEDS: Carvedilol 25 MG TAB PO SCH ×2 (08:56→21:02)
[2019-09-28] MEDS: Folic Acid/Vit B Comp W-C PO SCH (08:57)
[2019-09-28] MEDS: Brimonidine Tartrate 0.2% Ophth Soln 5 ml Bottle EA EYE SCH ×3 (09:01→21:04)
[2019-09-28] MEDS: Dorzolamide HCl 2% Ophth Soln 10 ml Bottle EA EYE SCH ×3 (09:01→21:04)
[2019-09-28] MEDS: Timolol 0.5% Ophth Soln 5 ml Bottle EA EYE SCH ×2 (09:02→21:03)
[2019-09-28] MEDS ORDERED: CEFAZOLIN 2 GM in Premix Bag 1 BAG IVPB SCH (09:15)
[2019-09-28] MEDS: HumaLOG 300 UNITS/3 ML VIAL SC PRN (12:12)
--- NOTE | 2019-09-28 13:38 | PDOC.HOSPP ---
- Subjective Encounter Date: 09/28/19 Encounter Time: 13:25 Subjective: f/u for ESRD initiated on HD. Tolerating HD sessions without difficulty. No swelling or SOB. - Objective Vital Signs & Weight: Vital Signs (12 hours) Temp Pulse Resp BP BP BP Pulse Ox 09/28/19 11:44 98.5 F 73 18 128/65 100 09/28/19 09:02 75 158/73 H 09/28/19 08:54 75 158/73 H 09/28/19 08:53 75 158/73 H 09/28/19 08:00 98.2 F 77 18 135/69 100 Weight Admit Weight 146 lb 2.664 oz Weight 146 lb 2.664 oz I&O: 09/27/19 09/28/19 09/29/19 06:59 06:59 06:59 Intake Total 960 1440 Output Total 628 Balance 960 812 Result Diagrams: 09/28/19 05:55 09/28/19 05:55 Additional Labs: Accuchecks 09/28/19 09/28/19 09/27/19 11:46 05:59 20:34 POC Glucose 202 H 139 H 137 H 09/27/19 16:53 POC Glucose 141 H Laboratory Tests 06/05/19 07/17/19 08/14/19 10:50 11:42 10:50 WBC Hgb Plt Count Creatinine Calcium 9.1 Iron 45 L 35 L TIBC % Saturation B-Natriuretic Peptide COVID-19 PCR 09/25/19 09/25/19 09/25/19 11:55 11:55 11:55 WBC 4.3 L Hgb 10.6 L Plt Count 115 L Creatinine 5.96 H Calcium 12.4 H* Iron TIBC % Saturation B-Natriuretic Peptide 104.1 H COVID-19 PCR 09/25/19 09/25/19 12:01 15:40 WBC Hgb Plt Count Creatinine Calcium Iron 25 L TIBC 196 L % Saturation 13 L B-Natriuretic Peptide COVID-19 PCR Not Detected Hospitalist ROS - Medication Medications: Active Medications Generic Name Dose Route Start Last Admin Trade Name Freq PRN Reason Stop Dose Admin Aspirin 81 mg 09/26/19 09:00 09/28/19 08:55 Aspirin Chewable PO 81 mg DAILY CESAR Administration Brimonidine Tartrate 1 drop 09/26/19 09:00 09/28/19 09:01 Alphagan 0.2% Ophth Soln EA EYE 1 drop TID CESAR Administration Carvedilol 25 mg 09/25/19 21:00 09/28/19 08:56 Coreg PO 25 mg BID CESAR Administration Dorzolamide HCl 1 drop 09/26/19 09:00 09/28/19 09:01 Trusopt 2% Ophth Soln EA EYE 1 drop TID CESAR Administration Ferrous Sulfate 325 mg 09/27/19 17:00 09/28/19 08:35 Feosol PO 325 mg BID-WM CESAR Administration Heparin Sodium (Porcine) 5,000 units 09/25/19 21:00 09/28/19 08:52 Heparin SC 5,000 units BID CESAR Administration Hydralazine HCl 10 mg 09/25/19 11:56 09/25/19 20:50 Apresoline SLOW IVP 10 mg Q3H PRN Administration SBP GREATER THAN 160 Hydralazine HCl 100 mg 09/26/19 09:00 09/28/19 08:54 Apresoline PO 100 mg TID CESAR Administration Insulin Human Lispro 0 units 09/25/19 11:56 09/28/19 12:12 Humalog SC 3 unit .MILD SLIDING SCALE PRN Administration Mild Correctional Scale Losartan Potassium 50 mg 09/26/19 09:00 09/28/19 08:54 Cozaar PO 50 mg BID CESAR Administration Multivitamins/Minerals 1 tab 09/26/19 09:00 09/28/19 08:55 Ocuvite With Lutein PO 1 tab BID CESAR Administration Nifedipine 60 mg 09/26/19 09:00 09/28/19 08:53 Procardia Xl PO 60 mg DAILY CESAR Administration Pantoprazole Sodium 40 mg 09/26/19 09:00 09/28/19 08:56 Protonix PO 40 mg DAILY CESAR Administration Simvastatin 10 mg 09/26/19 21:00 09/27/19 20:23 Zocor PO 10 mg HS CESAR Administration Sodium Bicarbonate 650 mg 09/26/19 09:00 09/28/19 08:53 Bicarbonate, Sodium PO 650 mg BID CESAR Administration Timolol Maleate 1 drop 09/26/19 09:00 09/28/19 09:02 Timoptic 0.5% Ophth Soln EA EYE 1 drop BID CESAR Administration Vitamin B Complex/Vit C/Folic Acid 1 tab 09/26/19 09:00 09/28/19 08:57 Nephro-Riki Tablet PO 1 tab DAILY CESAR Administration - Exam General Appearance: NAD, awake alert General - other findings: smiling, responsive Eye: PERRL, anicteric sclera ENT: normocephalic atraumatic, no oropharyngeal lesions Neck: supple, symmetric, no JVD, no thyromegaly Heart: RRR, no murmur, no gallops, no rubs, normal peripheral pulses Heart - other findings: S1, S2 Respiratory: CTAB, no wheezes, no rales, no ronchi, normal chest expansion, no tachypnea Gastrointestinal: soft, non-tender, non-distended, normal bowel sounds Extremities: no cyanosis, no clubbing, no edema Skin: normal turgor, no lesions Neurological: cranial nerve grossly intact, no new deficit Musculoskeletal: normal tone, normal strength Psychiatric: normal affect, A&O x 3 Hosp A/P (1) ESRD needing dialysis Code(s): N18.6 - END STAGE RENAL DISEASE; Z99.2 - DEPENDENCE ON RENAL DIALYSIS Status: Acute Plan: HD coordination for outpt services, Renal assistance appreciated (2) Hypercalcemia Code(s): E83.52 - HYPERCALCEMIA Status: Acute Plan: Resolved with HD (3) Anemia of renal disease Code(s): N18.9 - CHRONIC KIDNEY DISEASE, UNSPECIFIED; D63.1 - ANEMIA IN CHRONIC KIDNEY DISEASE Status: Chronic Plan: Stable, continue routine surveillance (4) Diabetes type 2, controlled Code(s): E11.9 - TYPE 2 DIABETES MELLITUS WITHOUT COMPLICATIONS Status: Chronic Plan: ISS, serial accuchecks, ADA (5) Hypertension Code(s): I10 - ESSENTIAL (PRIMARY) HYPERTENSION Status: Chronic Qualifiers: Hypertension type: essential hypertension Qualified Code(s): I10 - Essential (primary) hypertension - 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
--- NOTE | 2019-09-28 13:45 | PRG ---
DATE OF SERVICE: 09/28/2019 SUBJECTIVE: A 69-year-old female being seen for end-stage renal disease. The patient denies nausea, vomiting, or chest pain. OBJECTIVE: GENERAL: The patient is awake and alert. VITAL SIGNS: Afebrile, pulse 70, breathing 16, and blood pressure 122/65. HEENT: Head normocephalic and atraumatic. Eyes intact, no ulcers. Nose intact, no ulcers. Ears intact, no ulcers. NECK: Supple. No JVD. CHEST: Symmetrical and clear. CARDIOVASCULAR: Shows S1 and S2, no rub, no murmur. GASTROINTESTINAL: Abdomen is soft, bowel sounds positive. EXTREMITIES: Show no edema or ulcers. SKIN: Shows no rash or petechiae. MUSCULOSKELETAL: Shows no joint swelling or stiffness. GENITOURINARY: Shows no Yi or CVA tenderness. NEUROLOGIC: Motor intact. Cranial nerves intact. LABORATORY DATA: Reviewed. ASSESSMENT AND PLAN: 1. End-stage kidney disease. Continue hemodialysis. 2. Hypertension, stable. 3. Anemia, stable. Discharge planning is in progress. Job ID: [id number]
[2019-09-28] MEDS: Simvastatin 5 MG TAB PO SCH (21:02)
[2019-09-29 05:49] LABS: Hemoglobin A1c 4.9 % (4.0-6.0)
[2019-09-29 06:03] LABS: Anion Gap 16 mmol/L (10-20); BUN (Urea Nitrogen) 81 mg/dL (9.8-20.1); Calc. Creatinine Clearance 11 mL/min (70-130); Calcium 9.6 mg/dL (7.8-10.44); Carbon Dioxide 24 mmol/L (23-31); Chloride 103 mmol/L (98-107); Estimated GFR-MDRD 10; Glucose 108 mg/dL (80-115); Potassium 3.6 mmol/L (3.5-5.1); Sodium 139 mmol/L (136-145)
[2019-09-29] MEDS: Carvedilol 25 MG TAB PO SCH ×2 (07:08→20:44)
[2019-09-29] MEDS: Timolol 0.5% Ophth Soln 5 ml Bottle EA EYE SCH ×2 (07:23→20:45)
[2019-09-29] MEDS: Dorzolamide HCl 2% Ophth Soln 10 ml Bottle EA EYE SCH ×3 (07:24→20:45)
[2019-09-29] MEDS: Brimonidine Tartrate 0.2% Ophth Soln 5 ml Bottle EA EYE SCH ×3 (07:28→20:45)
[2019-09-29] MEDS: Heparin 5,000 UNITS/ML VIAL SC SCH ×2 (07:29→20:44)
[2019-09-29] MEDS ORDERED: Fentanyl 100 MCG/2 ML VIAL ONE ×2 (08:47→09:58)
[2019-09-29] MEDS: hydrALAZINE 25 MG TAB PO SCH ×3 (09:00→20:44)
[2019-09-29] MEDS: Vit A,C & E/Lutein/Minerals Tablet PO SCH ×2 (09:00→20:44)
[2019-09-29] MEDS: Folic Acid/Vit B Comp W-C PO SCH (09:00)
[2019-09-29] MEDS: Losartan 25 MG TAB PO SCH ×2 (09:00→20:45)
[2019-09-29] MEDS: Ferrous Sulfate 325 MG TAB PO SCH ×2 (09:00→16:38)
[2019-09-29] MEDS: NIFEdipine XL 60 MG TAB PO SCH (09:00)
[2019-09-29] MEDS: Aspirin Chewable 81 MG TAB PO SCH (09:00)
[2019-09-29] MEDS ORDERED: Heparin 5,000 UNITS/ML VIAL ONE (09:50)
[2019-09-29] MEDS ORDERED: Heparin 10,000 UNITS/1 ML VIAL ONE (09:50)
[2019-09-29] MEDS ORDERED: Midazolam HCl 2 mg/2 ml Vial ONE (09:58)
[2019-09-29] MEDS ORDERED: Protamine Sulfate 50 MG/5 ML VIAL ONE (10:06)
[2019-09-29] MEDS: Sodium Bicarbonate Tab 325 MG TAB PO SCH (11:35)
[2019-09-29] MEDS ORDERED: Ondansetron HCl/PF 4 MG/2 ML Vial IVP PRN (12:27)
[2019-09-29] MEDS ORDERED: Promethazine HCl 25 MG/ML VIAL IM PRN (12:27)
[2019-09-29] MEDS ORDERED: Promethazine HCl 25 MG/ML VIAL SLOW IVP PRN (12:27)
--- NOTE | 2019-09-29 12:37 | OP ---
DATE OF PROCEDURE: 09/29/2019 PRETOPERATIVE DIAGNOSES: 1. End-stage renal disease. 2. Poor veins by ultrasound vein mapping. 3. Right-handed. POSTOPERATIVE DIAGNOSES: 1. End-stage renal disease. 2. Poor veins by ultrasound vein mapping. 3. Right-handed. PROCEDURE PERFORMED: Left wrist Joel type fistula with transposition of cephalic vein over the dorsum of the hand to the radial artery with good Doppler signal at the end of the procedure and radial artery of excellent caliber, calibrated to a 3-mm coronary dilator outflow. ANESTHESIA: Regional and TIVA. DESCRIPTION OF PROCEDURE: The patient was taken to the operating room where under regional anesthesia, left upper extremity was prepared with ChloraPrep and draped in routine fashion. An incision was made in the left wrist, carried down to skin and subcutaneous tissue. Radial artery was dissected free. Branches were divided between clips and 4-0 silk ties. Radial artery mobilized. The patient was given 6000 units of heparin intravenously. The cephalic vein near the radial artery was seen to be of adequate caliber and was ligated on the hand side, divided and spatulated, interrogated with coronary dilators and had restriction to a 3 mm coronary dilator. Thus, it was clipped with a large clip, excised and the vein over the dorsum of the hand was mobilized, dividing the branch between 4-0 silk ties and clips, mobilized, and transposed and tunneling to the radial artery. It had been spatulated and interrogated with coronary dilators, passing coronary dilators from a 3 mm to 3.5 mm coronary dilator. The vein was then flushed with heparinized saline solution. The patient was given 6000 units of heparin intravenously. Radial artery clamped proximally and distally. A longitudinal arteriotomy was made sharply, elongated with [place] scissors and then cephalic vein branch over the dorsum of the hand spatulated accordingly and anastomosed with continuous suture of 6-0 Prolene. After completing the anastomosis, good hemostasis was obtained with 6-0 Prolene. There was good Doppler signal in the outflow tract. The patient tolerated the procedure well without complications. The patient was given 25 mg of protamine intravenously. All incisions were closed by approximating subcutaneous tissue with 3-0 Monocryl, skin with subdermal Monocryl, and Apex glue applied. If this does not mature, then a more proximal fistula will be necessary, but we will see how it works out. She may need a prosthetic graft. Job ID: [id number]
[2019-09-29] MEDS ORDERED: Acetaminophen 500 MG TAB PO PRN (12:39)
[2019-09-29] MEDS ORDERED: traMADol HCl 50 MG TAB PO PRN (12:39)
--- NOTE | 2019-09-29 12:42 | PRG ---
DATE OF SERVICE: 09/29/2019 SUBJECTIVE: Patient was seen and examined at bedside and overnight events noted. Patient denies any shortness of breath or chest pain or palpitation. No history of nausea or vomiting or diarrhea or fever or chills or cramps. OBJECTIVE: General: This is a well-built female, in no apparent distress. Vital Signs: Temperature . Heart rate 74. Respiratory rate . Blood pressure 132/72. HEENT: Atraumatic, normocephalic. Oral mucosa is moist. Neck: Supple. Cardiovascular: S1, S2 heard. Rate and rhythm regular. Respiratory: Clear to auscultation. Gastrointestinal: Abdomen is soft. Musculoskeletal: No tenderness. No edema. Dermatologic: No skin rash. Neurologic: Alert and awake and oriented x3. No focal neurologic deficits. Moving all the extremities. Psychiatric: Mood and affect normal. LABORATORY DATA: Potassium 3.8, BUN is 81, creatinine is 5.2. ASSESSMENT AND PLAN: 1. End-stage renal disease. Continue on dialysis. 2. Edema. 3. Hypertension. 4. Chronic anemia. 5. Continue on dialysis as tolerated. Job ID: [id number]
[2019-09-29] MEDS ORDERED: Bupivacaine HCl 0.5%/Epinephrine 1:200,000/PF 30 ml Vial ONE (13:14)
[2019-09-29 17:09] LABS: A/G Ratio 1.5 (0.7-1.7); Albumin 3.5 g/dL (2.9-4.4); Alpha 1 0.2 g/dL (0.0-0.4); Alpha 2 0.6 g/dL (0.4-1.0); Beta 0.6 g/dL (0.7-1.3); Gamma 0.9 g/dL (0.4-1.8); Globulin, Total 2.3 g/dL (2.2-3.9); M-Spike Not Observed g/dL (Not Observed)
--- NOTE | 2019-09-29 17:41 | PDOC.HOSPP ---
- Subjective Encounter Date: 09/29/19 Encounter Time: 17:40 Subjective: f/u for ESRD s/p AV fistula placement today. Feels ok overall. No LUE pain, SOB. - Objective Vital Signs & Weight: Vital Signs (12 hours) Temp Pulse Resp BP BP Pulse Ox 09/29/19 16:38 79 161/78 H 09/29/19 16:29 97.8 F 77 18 161/78 H 99 09/29/19 09:00 74 138/72 09/29/19 08:00 100 09/29/19 07:23 74 138/72 09/29/19 07:20 98.1 F 74 18 138/72 100 Weight Admit Weight 146 lb 2.664 oz Weight 146 lb 2.664 oz I&O: 09/28/19 09/29/19 09/30/19 06:59 06:59 06:59 Intake Total 1440 480 Output Total 628 Balance 812 480 Result Diagrams: 09/28/19 05:55 09/29/19 05:30 Additional Labs: Accuchecks 09/29/19 09/28/19 16:37 21:13 POC Glucose 110 157 H Laboratory Tests 06/05/19 07/17/19 08/14/19 10:50 11:42 10:50 WBC Hgb Plt Count Creatinine Calcium 9.1 Iron 45 L 35 L TIBC % Saturation B-Natriuretic Peptide COVID-19 PCR 09/25/19 09/25/19 09/25/19 11:55 11:55 11:55 WBC 4.3 L Hgb 10.6 L Plt Count 115 L Creatinine 5.96 H Calcium 12.4 H* Iron TIBC % Saturation B-Natriuretic Peptide 104.1 H COVID-19 PCR 09/25/19 09/25/19 12:01 15:40 WBC Hgb Plt Count Creatinine Calcium Iron 25 L TIBC 196 L % Saturation 13 L B-Natriuretic Peptide COVID-19 PCR Not Detected Laboratory Tests 09/29/19 05:30 Hemoglobin A1c 4.9 Hospitalist ROS - Medication Medications: Active Medications Generic Name Dose Route Start Last Admin Trade Name Freq PRN Reason Stop Dose Admin Aspirin 81 mg 09/26/19 09:00 09/29/19 09:00 Aspirin Chewable PO Not Given DAILY CESAR Brimonidine Tartrate 1 drop 09/26/19 09:00 09/29/19 16:39 Alphagan 0.2% Ophth Soln EA EYE 1 drop TID CESAR Administration Carvedilol 25 mg 09/25/19 21:00 09/29/19 07:08 Coreg PO 25 mg BID CESAR Administration Dorzolamide HCl 1 drop 09/26/19 09:00 09/29/19 16:39 Trusopt 2% Ophth Soln EA EYE 1 drop TID CESAR Administration Ferrous Sulfate 325 mg 09/27/19 17:00 09/29/19 16:38 Feosol PO 325 mg BID-WM CESAR Administration Heparin Sodium (Porcine) 5,000 units 09/25/19 21:00 09/29/19 07:29 Heparin SC Not Given BID [facility] Hydralazine HCl 10 mg 09/25/19 11:56 09/25/19 20:50 Apresoline SLOW IVP 10 mg Q3H PRN Administration SBP GREATER THAN 160 Hydralazine HCl 100 mg 09/26/19 09:00 09/29/19 16:38 Apresoline PO 100 mg TID CESAR Administration Insulin Human Lispro 0 units 09/25/19 11:56 09/28/19 12:12 Humalog SC 3 unit .MILD SLIDING SCALE PRN Administration Mild Correctional Scale Losartan Potassium 50 mg 09/26/19 09:00 09/29/19 09:00 Cozaar PO Not Given BID [facility] Multivitamins/Minerals 1 tab 09/26/19 09:00 09/29/19 09:00 Ocuvite With Lutein PO Not Given BID [facility] Nifedipine 60 mg 09/26/19 09:00 09/29/19 09:00 Procardia Xl PO Not Given DAILY [facility] Pantoprazole Sodium 40 mg 09/26/19 09:00 09/29/19 09:00 Protonix PO Not Given DAILY [facility] Simvastatin 10 mg 09/26/19 21:00 09/28/19 21:02 Zocor PO 10 mg HS [facility] Administration Timolol Maleate 1 drop 09/26/19 09:00 09/29/19 07:23 Timoptic 0.5% Ophth Soln EA EYE 1 drop BID [facility] Administration Vitamin B Complex/Vit C/Folic Acid 1 tab 09/26/19 09:00 09/29/19 09:00 Nephro-Riki Tablet PO Not Given DAILY [facility] - Exam General Appearance: NAD, awake alert Eye: PERRL, anicteric sclera ENT: normocephalic atraumatic, no oropharyngeal lesions Neck: supple, symmetric, no JVD, no thyromegaly Heart: RRR, no murmur, no gallops, no rubs, normal peripheral pulses Heart - other findings: S1, S2 Respiratory: CTAB, no wheezes, no rales, no ronchi, normal chest expansion Gastrointestinal: soft, non-tender, non-distended, normal bowel sounds, no palpable masses Extremities: no cyanosis Extremities - other findings: LUE with AV fistula in place Skin: normal turgor Neurological: cranial nerve grossly intact, no new deficit Musculoskeletal: normal tone, normal strength Psychiatric: normal affect, A&O x 3 Hosp A/P (1) ESRD needing dialysis Code(s): N18.6 - END STAGE RENAL DISEASE; Z99.2 - DEPENDENCE ON RENAL DIALYSIS Status: Acute Plan: s/p AV fistula placement today, HD per Renal service (2) Hypercalcemia Code(s): E83.52 - HYPERCALCEMIA Status: Acute Plan: Resolving (3) Anemia of renal disease Code(s): N18.9 - CHRONIC KIDNEY DISEASE, UNSPECIFIED; D63.1 - ANEMIA IN CHRONIC KIDNEY DISEASE Status: Chronic (4) Diabetes type 2, controlled Code(s): E11.9 - TYPE 2 DIABETES MELLITUS WITHOUT COMPLICATIONS Status: Chronic Plan: A1C - 4.9, ISS, serial accuchecks, diet managed for d/c (5) Hypertension Code(s): I10 - ESSENTIAL (PRIMARY) HYPERTENSION Status: Chronic Qualifiers: Hypertension type: essential hypertension Qualified Code(s): I10 - Essential (primary) hypertension - 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
[2019-09-29] MEDS: Simvastatin 5 MG TAB PO SCH (20:44)
[2019-09-30] MEDS: hydrALAZINE 25 MG TAB PO SCH (07:53)
[2019-09-30] MEDS: NIFEdipine XL 60 MG TAB PO SCH (07:54)
[2019-09-30] MEDS: Carvedilol 25 MG TAB PO SCH (07:54)
[2019-09-30] MEDS: Losartan 25 MG TAB PO SCH (07:54)
[2019-09-30] MEDS: Ferrous Sulfate 325 MG TAB PO SCH (07:54)
[2019-09-30] MEDS: Folic Acid/Vit B Comp W-C PO SCH (07:55)
[2019-09-30] MEDS: Aspirin Chewable 81 MG TAB PO SCH (07:55)
[2019-09-30] MEDS: Brimonidine Tartrate 0.2% Ophth Soln 5 ml Bottle EA EYE SCH (07:55)
[2019-09-30] MEDS: Dorzolamide HCl 2% Ophth Soln 10 ml Bottle EA EYE SCH (07:56)
[2019-09-30] MEDS: Heparin 5,000 UNITS/ML VIAL SC SCH (07:57)
[2019-09-30] MEDS: Timolol 0.5% Ophth Soln 5 ml Bottle EA EYE SCH (07:57)
[2019-09-30 08:17] VITALS: BP 129/61; TEMP 99.3
[2019-09-30] MEDS: Vit A,C & E/Lutein/Minerals Tablet PO SCH (08:53)
[2019-09-30] MEDS: HumaLOG 300 UNITS/3 ML VIAL SC PRN (11:23)
--- NOTE | 2019-09-30 15:07 | PRG ---
DATE OF SERVICE: 09/30/2019 Ms. Lara is doing well today. She had a left arm fistula yesterday. Her main cephalic vein forearm was occluded. Thus, vein over the dorsum of her hand was mobilized and accepted up to a 3.5 mm coronary dilator and flushed well. This seems to have flow throughout to the upper extremity and upper arm. She had a primary fistula. Hopefully, this will mature. She should exercise the arm without restriction. The sutures are absorbable. She can shower ad-kaya, wetting the arm, washing with soap and water. At this point, I will see her as needed this hospitalization. She should follow up with me in the office in 3 to 4 weeks. Job ID: [id number]
--- NOTE | 2019-09-30 17:11 | PRG ---
DATE OF SERVICE: 09/30/2019 SUBJECTIVE: The patient was seen and examined at bedside and overnight events noted. The patient denies any shortness of breath or chest pain or palpitation. No history of nausea or vomiting or diarrhea or fever or chills or cramps. OBJECTIVE: GENERAL: This is a well-built female, in no apparent distress. VITAL SIGNS: Temperature 98.3. Heart rate 77. Respiratory rate 14. Blood pressure 129/61. HEENT: Atraumatic, normocephalic. Oral mucosa is moist. NECK: Supple. CARDIOVASCULAR: S1, S2 heard. Rate and rhythm regular. RESPIRATORY: Clear to auscultation. GASTROINTESTINAL: Abdomen is soft. MUSCULOSKELETAL: No tenderness. No edema. DERMATOLOGIC: No skin rash. NEUROLOGIC: Alert and awake and oriented x3. No focal neurologic deficits. Moving all the extremities. PSYCHIATRIC: Mood and affect normal. LABORATORY DATA: Potassium is 3.6, BUN is 81, ASSESSMENT AND PLAN: 1. End-stage renal disease. Continue dialysis Sunday, Sunday, and Sunday. 2. Edema. We will remove fluid. 3. History of hypertension. 4. Anemia of chronic disease. Plan to continue dialysis Sunday, Sunday, and Sunday. Job ID: [id number]
--- NOTE | 2019-09-30 23:18 | DIS ---
DATE OF ADMISSION: 09/25/2019 DATE OF DISCHARGE: 09/30/2019 DISCHARGE DIAGNOSES: 1. End-stage renal disease with hemodialysis. 2. Hypercalcemia secondarily to #1, resolved. 3. Anemia due to chronic kidney disease with iron deficiency component. 4. Hypertension, stable. CONSULTATIONS: 1. Dr. Mendez with General Surgery Service. 2. Dr. Stafford and Dr. Neff with Nephrology Service. PERTINENT LABORATORY AND X-RAY FINDINGS: Creatinine ranged between 4.74 to 5.96. Estimated GFR ranged between 9 to 11. Hemoglobin A1c 4.9. Calcium level ranged between 9.6 to 12.4. Phosphorus ranged between 4.2 to 4.7. Serum iron level 25, TIBC 196, percent saturation 13, ferritin 141. CBC showed a white blood cell count ranged between 4.3 to 6.0, hemoglobin ranged between 9.3 to 10.6, platelet count 115. Hepatitis B and C negative. COVID-19 PCR negative, 09/25/2019. Portable chest x-ray dated 09/25/2019, showed no acute cardiopulmonary process. Thyroid ultrasound dated 09/26/2019, showed numerous cystic nodules diffusely of the thyroid gland. HOSPITAL COURSE: The patient was initially admitted after presenting with depressed renal function with estimated GFR in the 10% range. The patient underwent evaluation by the Nephrology Service with recommendations to initiate hemodialysis. The patient was also noted with hypercalcemia in the context of worsening renal function. The patient underwent placement of tunneled hemodialysis catheter on the right internal jugular vein and underwent hemodialysis at the direction of the Nephrology Service. The patient continued to receive hemodialysis throughout the hospital course with overall resolution of the hypercalcemia. The patient also underwent placement of a left upper extremity AV fistula in preparation for long-term hemodialysis management. The patient remained clinically stable through the hospital course, tolerating regular oral intake, ambulating without assistance or difficulty with stable vital signs. I have examined the patient at the time of discharge and discussed followup instructions. The patient verbalized understanding and agreement ready for discharge on 09/30/2019. DISCHARGE MEDICATIONS: 1. Enteric-coated aspirin 81 mg p.o. daily. 2. Brimonidine one drop to each eye t.i.d. 3. Coreg 25 mg p.o. b.i.d. 4. Vitamin D3 of 1000 units p.o. daily. 5. Cinnamon bark 2000 mg p.o. b.i.d. 6. Hydralazine 100 mg p.o. t.i.d. 7. Cozaar 50 mg p.o. b.i.d. 8. Multivitamin 1 tablet p.o. daily. 9. Nifedipine XL 60 mg p.o. daily. 10. Zocor 10 mg p.o. at bedtime. 11. Timolol maleate one drop to each eye b.i.d. 12. Ferrous sulfate 325 mg p.o. b.i.d. 13. Folic acid with vitamin B complex one tablet p.o. daily. FOLLOWUP: The patient will follow up with Dr. Jose Espinal within 7 days of discharge. The patient may follow up with Dr. Mendez in 3 to 4 weeks after discharge. The patient may follow with Dr. Neff with Nephrology Service. CONDITION ON DISCHARGE: Stable. ACTIVITY: Ad-kaya. DIET: Renal. CODE STATUS: Full. DISPOSITION: Discharged home, 09/30/2019. TIME SPENT: Total time preparing and coordinating discharge, 33 minutes. Job ID: [id number]
== END 2019-09-30 15:30 | disposition home or self-care (01) | DRG 673 ==
LOC: ERS 08:33 → ONC 11:10
PROVIDERS: ADMIT Internal Medicine; ATTEND Family Medicine
PROC: 5A1D70Z Performance of Urinary Filtration, Intermittent, Less than 6 Hours Per Day (ICD-10-PCS; 2019-09-25)
PROC: 0JH63XZ Insertion of Tunneled Vascular Access Device into Chest Subcutaneous Tissue and Fascia, Percutaneous Approach (ICD-10-PCS; 2019-09-26)
PROC: 02HV33Z Insertion of Infusion Device into Superior Vena Cava, Percutaneous Approach (ICD-10-PCS; 2019-09-26)
PROC: B5181ZA Fluoroscopy of Superior Vena Cava using Low Osmolar Contrast, Guidance (ICD-10-PCS; 2019-09-26)
PROC: B548ZZA Ultrasonography of Superior Vena Cava, Guidance (ICD-10-PCS; 2019-09-26)
PROC: 5A1D70Z Performance of Urinary Filtration, Intermittent, Less than 6 Hours Per Day (ICD-10-PCS; 2019-09-27)
PROC: 031B0ZF Bypass Right Radial Artery to Lower Arm Vein, Open Approach (ICD-10-PCS; principal; 2019-09-29)
DX: I12.0 Hypertensive chronic kidney disease with stage 5 chronic kidney disease or end stage renal disease (principal); N18.6 End stage renal disease; D61.818 Other pancytopenia; N17.9 Acute kidney failure, unspecified; N25.81 Secondary hyperparathyroidism of renal origin; E11.22 Type 2 diabetes mellitus with diabetic chronic kidney disease; D63.1 Anemia in chronic kidney disease; E78.5 Hyperlipidemia, unspecified; E83.52 Hypercalcemia; H40.9 Unspecified glaucoma; Z11.59 Encounter for screening for other viral diseases; Z99.2 Dependence on renal dialysis
CPT/HCPCS: 36415; 36416; 71045; 76536; 80048; 80053; 80069; 81001; 82550; 82728; 83036; 83540; 83550; 83880; 83970; 84100; 84165; 84484; 85007; 85025; 85027; 86704; 86706; 86803; 87340; 87635; 90935; 93005; 93970; C1752; G0257; G0365; J0360; J0670; J0690; J1644; J2001; J2250; J2704; J2720; J3010; S0020; U0003

== ENCOUNTER 2020-01-22 07:36 | Outpatient (CLI) | payer MEDICARE, OTHER ==
[2020-01-23 11:13] LABS: SARS-CoV-2 by NAA Not Detected (NotDetected)
[2020-01-23 11:14] LABS: SARS-CoV-2 MS2 Positive; SARS-CoV-2 N Gene Negative; SARS-CoV-2 S Gene Negative; SARS-CoV-2 orf1ab Negative
== END 2020-01-22 07:37 | disposition home or self-care (01) ==
LOC: LABBT 07:36
PROVIDERS: ATTEND Surgery
DX: Z01.818 Encounter for other preprocedural examination (principal); N18.6 End stage renal disease; Z20.828 Contact with and (suspected) exposure to other viral communicable diseases
CPT/HCPCS: 93005; U0003; 87635; 93010

== ENCOUNTER 2020-01-27 08:57 | Day surgery (SDC) | payer MEDICARE ==
[2020-01-22 15:09] VITALS: BMI 24.3
[2020-01-27] MEDS ORDERED: Fentanyl 100 MCG/2 ML VIAL ONE ×2 (10:08→13:37)
[2020-01-27] MEDS ORDERED: Heparin 5,000 UNITS/ML VIAL ONE ×2 (13:28→13:49)
[2020-01-27] MEDS ORDERED: Protamine Sulfate 50 MG/5 ML VIAL ONE (13:28)
[2020-01-27] MEDS ORDERED: Bupivacaine 0.25% HCL 30 ML VIAL ONE (13:28)
[2020-01-27] MEDS ORDERED: Lidocaine 2% w/Epinephrine 1:200K 20 ML VIAL ONE (13:28)
[2020-01-27] MEDS ORDERED: Propofol 500 MG/50 ML VIAL ONE (13:37)
[2020-01-27] MEDS ORDERED: Ketamine 50 MG/ML (10ML VIAL) ONE (13:37)
[2020-01-27] MEDS ORDERED: Midazolam HCl 2 mg/2 ml Vial ONE (13:37)
[2020-01-27] MEDS ORDERED: Heparin 10,000 UNITS/ 10 ML VIAL ONE (13:49)
[2020-01-27] MEDS ORDERED: Bupivacaine HCl 0.5%/Epinephrine 1:200,000/PF 30 ml Vial ONE (13:51)
[2020-01-27] MEDS ORDERED: Heparin 1,000 UNITS/ML VIAL ONE ×2 (17:34→17:36)
--- NOTE | 2020-01-30 16:32 | PDOC.OP ---
Operative Note - Operative Note Operative Note: DATE OF PROCEDURE: PROCEDURE: Left upper arm radiocephalic AV fistula SURGEON: Héctor Banks M.D. PREOPERATIVE DIAGNOSIS: End-stage renal failure. POSTOPERATIVE DIAGNOSIS: End-stage renal failure. HISTORY: Patient with end-stage renal failure who requires permanent access for ongoing hemodialysis. She has a previous failed left Joel AV fistula. After reviewing vein mapping the decision was made to proceed with a primary fistula on the left arm. PROCEDURE: After informed consent was obtained and appropriate preoperative antibiotics administered, the patient was taken to the operating room and was placed in supine position and general anesthesia was administered. A preoperative block had been placed by anesthesia and adequacy confirmed. The patient's arm was prepped and draped in standard sterile fashion. The palpable cephalic vein and radial artery were marked on the skin above the level of the previously attempted Joel fistula. The cephalic vein was fairly dorsal on the forearm so a length was marked out that would be sufficient to reach to the radial artery if dissected free. Incision was made over the dorsal cephalic vein and this was dissected free circumferentially. This was ligated and divided distally and spatulated but on interrogation with the cardiac dilators would not except anything larger than 2 mm. This was ligated and an incision made over a second branch of the dorsal cephalic vein. This was dissected free and interrogated but again would not except anything larger than 2 mm dilator. Attention was then turned to the upper arm. The cephalic and basilic veins were marked on the skin as was the location of the brachial pulse at the level of the antecubital fossa. Since the cephalic vein appeared adequate for fistula formation and since the basilic vein was rather distant from the artery the decision was made to evaluate the cephalic vein first. An incision was made and dissection carried down to the cephalic vein. This was felt to be of adequate caliber and was dissected free circumferentially and ligated and divided distally. The vein was interrogated with cardiac dilators and easily accepted up to a 3.5 mm dilator. The vein was flushed with heparinized saline and clamped. A second incision was made over the palpable pulse and the artery was identified and dissected free and was felt to be of adequate caliber and quality to support a fistula. This was felt to likely be the radial artery since it was several centimeters distal to the antecubital fossa and of smaller caliber than would be expected for the brachial artery. This was dissected free. A subcutaneous tunnel was created and the cephalic vein was brought through the tunnel taking care to maintain correct orientation. Heparin was administered systemically and allowed to circulate for 3 minutes. After the heparin had circulated for 3 minutes, the radial artery was clamped proximally and distally. An anterior arteriotomy was created with an 11 blade and extended with [place] scissors. The vein was spatulated and an end-to-side anastomosis was created with excellent technical result. Prior to tying down the anastomosis, the arterial inflow was released flushing the anastomosis. The anastomosis was then secured and hemostasis was verified. Flow was established first through the fistula following which flow was restored through the artery. The patient had a palpable thrill in the cephalic vein as well as a good Doppler signal to the level of the shoulder. The wound was irrigated and examined for hemostasis was again confirmed to be excellent. Surgicel was placed in the subcutaneous tunnel and anastomosis as a precaution. The subcutaneous tissues at all of the incisions were reapproximated with running 3-0 Monocryl sutures and the skin incisions were closed with running 4-0 subcuticular Monocryl sutures. Dermabond dressings were placed. The patient was then taken to recovery in good condition. Estimated blood loss was minimal. There were no complications. There were no specimens.
== END 2020-01-27 18:15 | disposition home or self-care (01) ==
LOC: SDC 08:57
PROVIDERS: ATTEND Surgery
PROC: 031C0ZF Bypass Left Radial Artery to Lower Arm Vein, Open Approach (ICD-10-PCS; principal; 2020-01-27)
DX: I12.0 Hypertensive chronic kidney disease with stage 5 chronic kidney disease or end stage renal disease (principal); E11.22 Type 2 diabetes mellitus with diabetic chronic kidney disease; N18.6 End stage renal disease; E04.9 Nontoxic goiter, unspecified; Z79.82 Long term (current) use of aspirin; Z79.899 Other long term (current) drug therapy; Z88.8 Allergy status to other drugs, medicaments and biological substances; Z99.2 Dependence on renal dialysis
CPT/HCPCS: J0690; J1644; J2250; J2704; J2720; J3010; S0020